=== PATIENT | female | born 1985 | race Caucasian/White ===

== ENCOUNTER 2017-02-02 09:09 | Emergency (ER) | payer MEDICAID ==
[~2017-02-02] VITALS: Ht 162.6 cm; Wt 55.0 kg
[2017-02-02 12:04] VITALS: BP 118/63
== END 2017-02-02 12:05 | disposition home or self-care (01) ==
LOC: ER 09:18
DX: L97.819 Non-pressure chronic ulcer of other part of right lower leg with unspecified severity (principal); R03.0 Elevated blood-pressure reading, without diagnosis of hypertension
CPT/HCPCS: 99283